=== PATIENT | male | born 1960 | race Caucasian/White ===

== ENCOUNTER 2019-01-15 11:28 | Emergency (ER) | payer BC, SELFPAY ==
[~2019-01-15] VITALS: Ht 190.5 cm; Wt 95.5 kg
[~2019-01-15 11:28] MED LIST: ALBU2.5V12 NEB; ALBU8HFA PO; ALPR1TAB2 PO; ASPI-1071 PO; ATOR20TA66 PO; BUSP15TA14 PO; CARV25TA PO; DEXL60CA3 PO; KEN0.1O TP; TICA90TA PO
[2019-01-15 12:13] LABS: BASOPHILS % (AUTO) 0.4 % (0-1); EOSINOPHILS # (AUTO) 0.1 X10'3 (0-0.9); EOSINOPHILS % (AUTO) 2.2 % (0-6); HEMATOCRIT 43.4 % (42.0-52.0); HEMOGLOBIN 14.6 g/dl (14.0-17.9); LYMPHOCYTES # (AUTO) 1.8 X10'3 (1.1-4.8); LYMPHOCYTES % (AUTO) 26.7 % (21-51); MEAN CORPUSCULAR HEMOGLOBIN 29.1 PG (27.0-31.0); MEAN CORPUSCULAR HGB CONC 33.5 g/dL (33.0-36.5); MEAN CORPUSCULAR VOLUME 86.8 FL (78-98); MEAN PLATELET VOLUME 8.6 FL (7.4-10.4); MONOCYTES # (AUTO) 0.5 X10'3 (0-0.9); NEUTROPHILS # (AUTO) 4.2 X10'3 (1.8-7.7); NEUTROPHILS % (AUTO) 62.7 % (42-75); PLATELET COUNT 195 X10'3 (140-440); RED BLOOD COUNT 5.01 X10'6 (4.70-6.10); RED CELL DISTRIBUTION WIDTH 13.9 % (11.5-14.5); WHITE BLOOD COUNT 6.6 X10'3 (4.5-11.0)
[2019-01-15 12:24] LABS: PARTIAL THROMBOPLASTIN TIME 28 SECONDS (22-32)
[2019-01-15 12:26] LABS: ALANINE AMINOTRANSFERASE 29 U/L (12-78); ALBUMIN 4.4 G/DL (3.4-5.0); ALKALINE PHOSPHATASE 78 IU/L (46-116); ANION GAP 4 (8-16); ASPARTATE AMINO TRANSFERASE 17 U/L (10-37); BILIRUBIN,TOTAL 0.7 MG/DL (0.1-1.0); BLOOD UREA NITROGEN 14 MG/DL (7-18); BUN/CREATININE RATIO 13.7 (5.4-32.0); CALCIUM 9.7 MG/DL (8.5-10.1); CHLORIDE 100 MMOL/L (99-107); CREATININE 1.02 MG/DL (0.60-1.10); GLUCOSE 110 MG/DL (70-104); POTASSIUM 3.9 MMOL/L (3.5-5.1); SODIUM 135 MMOL/L (135-145); TOTAL CARBON DIOXIDE 31.4 MMOL/L (24-32); TOTAL PROTEIN 8.7 G/DL (6.4-8.2); eGFR 75 ML/MIN
[2019-01-15] MEDS ORDERED: aspirin 325mg tablet PO ONE (14:10)
[2019-01-15] MEDS ORDERED: nitroGLYCERIN 0.4mg SUBLingual tab SL PRN (14:20)
[2019-01-15 16:24] VITALS: BP 144/74
== END 2019-01-15 16:26 | disposition home or self-care (01) ==
LOC: ER 11:28
DX: R07.89 Other chest pain (principal); R06.02 Shortness of breath; M54.9 Dorsalgia, unspecified; R11.2 Nausea with vomiting, unspecified; I25.10 Atherosclerotic heart disease of native coronary artery without angina pectoris; I25.2 Old myocardial infarction; G89.29 Other chronic pain; Z98.61 Coronary angioplasty status; Z98.890 Other specified postprocedural states; Z88.0 Allergy status to penicillin; Z91.018 Allergy to other foods; Z88.5 Allergy status to narcotic agent; Z79.82 Long term (current) use of aspirin; Z79.899 Other long term (current) drug therapy; Z87.891 Personal history of nicotine dependence
CPT/HCPCS: 36415; 71045; 80053; 84484; 85025; 85610; 85730; 93005; 99284

== ENCOUNTER 2019-11-01 15:23 | Observation (INO) | payer BC ==
[~2019-11-01] VITALS: Ht 190.5 cm; Wt 93.2 kg
[~2019-11-01 15:23] MED LIST changes: -BUSP15TA14 PO; +BUSP15TA8 PO
[2019-11-01] MEDS ORDERED: nitroGLYCERIN 0.4mg SUBLingual tab SL STA (15:46)
[2019-11-01] MEDS ORDERED: aspirin 81mg tab.chew PO ONE (15:50)
[2019-11-01 15:54] LABS: BASOPHILS % (AUTO) 0.4 % (0-1); EOSINOPHILS # (AUTO) 0.2 X10'3 (0-0.9); EOSINOPHILS % (AUTO) 2.5 % (0-6); HEMATOCRIT 43.3 % (42.0-52.0); HEMOGLOBIN 14.5 g/dl (14.0-17.9); LYMPHOCYTES # (AUTO) 1.9 X10'3 (1.1-4.8); LYMPHOCYTES % (AUTO) 25.2 % (21-51); MEAN CORPUSCULAR HEMOGLOBIN 29.7 PG (27.0-31.0); MEAN CORPUSCULAR HGB CONC 33.5 g/dL (33.0-36.5); MEAN CORPUSCULAR VOLUME 88.6 FL (78-98); MEAN PLATELET VOLUME 9.4 FL (7.4-10.4); MONOCYTES # (AUTO) 0.7 X10'3 (0-0.9); MONOCYTES % (AUTO) 9.1 % (2-12); NEUTROPHILS # (AUTO) 4.9 X10'3 (1.8-7.7); NEUTROPHILS % (AUTO) 62.8 % (42-75); PLATELET COUNT 197 X10'3 (140-440); RED BLOOD COUNT 4.88 X10'6 (4.70-6.10); RED CELL DISTRIBUTION WIDTH 13.2 % (11.5-14.5); WHITE BLOOD COUNT 7.7 X10'3 (4.5-11.0)
--- NOTE | 2019-11-01 16:10 | NUR ---
pt states he had almost instantaneous relief from nitro, can breathe much deeper and cp has abated
[2019-11-01 16:26] LABS: ALANINE AMINOTRANSFERASE 27 U/L (12-78); ALBUMIN 3.9 G/DL (3.4-5.0); ALKALINE PHOSPHATASE 73 IU/L (46-116); ANION GAP 8 (8-16); ASPARTATE AMINO TRANSFERASE 16 U/L (10-37); BILIRUBIN,TOTAL 0.4 MG/DL (0.1-1.0); BLOOD UREA NITROGEN 12 MG/DL (7-18); BUN/CREATININE RATIO 11.9 (5.4-32.0); CALCIUM 9.6 MG/DL (8.5-10.1); CHLORIDE 104 MMOL/L (99-107); CREATININE 1.01 MG/DL (0.60-1.10); GLUCOSE 111 MG/DL (70-104); POTASSIUM 3.9 MMOL/L (3.5-5.1); SODIUM 139 MMOL/L (135-145); TOTAL CARBON DIOXIDE 27.5 MMOL/L (24-32); TOTAL PROTEIN 7.8 G/DL (6.4-8.2); eGFR 76 ML/MIN
[2019-11-01] MEDS ORDERED: normal saline 1000ML IV soln IVB ONE (16:55)
[2019-11-01] MEDS ORDERED: acetaminophen 325mg tablet PO PRN ×2 (17:15)
[2019-11-01] MEDS ORDERED: nitroGLYCERIN 0.4mg SUBLingual tab SL PRN (17:15)
[2019-11-01] MEDS ORDERED: potassium CL 10mEq/100ml bag 100 ML IV PRN ×2 (17:15)
[2019-11-01] MEDS ORDERED: aminophylline 250mg/10ml inj. IV PRN (17:15)
[2019-11-01] MEDS ORDERED: metoprolol tartrate 1mg/ml inj IV PRN (17:15)
[2019-11-01] MEDS ORDERED: mag hydrox/Alum hydrox/simeth 30ml oral suspension PO PRN (17:15)
[2019-11-01] MEDS ORDERED: potassium Cl 20 mEq SR tablet PO PRN ×2 (17:15)
[2019-11-01] MEDS ORDERED: magnesium 2GM in 50ml NS 50 ML IV PRN (17:15)
[2019-11-01] MEDS ORDERED: magnesium 4gm in 100ml NS 100 ML IV PRN (17:15)
[2019-11-01] MEDS ORDERED: magnesium Cl slow-release 64mg tablet PO PRN (17:15)
[2019-11-01] MEDS ORDERED: ondansetron/PF 4mg/2ml inj IV PRN (17:15)
[2019-11-01] MEDS ORDERED: regadenoson 0.4mg/5ml syringe IV ONE (17:15)
[2019-11-01] MEDS ORDERED: magnesium hydroxide 30ml (MOM) UD suspension PO PRN (17:15)
[2019-11-01] MEDS ORDERED: acetaminophen 650mg rectal suppository RC PRN (17:15)
[2019-11-01] MEDS ORDERED: bisacodyl 10mg suppository rectal RC PRN (17:15)
[2019-11-01] MEDS: normal saline 1000ml 1,000 ML IV SCH (17:42)
[2019-11-01] MEDS ORDERED: ATOR40TA71 PO (17:49)
[2019-11-01] MEDS ORDERED: ASPI-611 PO (17:50)
[2019-11-01] MEDS ORDERED: LOSA25TA41 PO (17:50)
[2019-11-01 18:01] LABS: HEMOGLOBIN A1C 5.6 % (4.5-6.2)
[2019-11-01 18:24] LABS: CLARITY,URINE CLEAR (Clear); COLOR,URINE YELLOW (Yellow); GLUCOSE, URINE NEGATIVE (Neg); KETONES,URINE NEGATIVE (Neg); LEUKOCYTE ESTERASE ,URINE NEGATIVE (Neg); NITRITES, URINE NEGATIVE (Neg); OCCULT BLOOD,URINE NEGATIVE (Neg); PROTEIN,URINE NEGATIVE (Neg); UROBILINOGEN,URINE 0.2 E.U/dL (0.2-1.0)
[2019-11-01 18:38] LABS: UA COLLECTION TYPE CLN CATCH MIDSTREAM
[2019-11-01 19:05] VITALS: BP 148/88
--- NOTE | 2019-11-01 19:05 | NUR ---
pt arrived to PCU unit from ER, pt transferred from [facility] to bed independently, pt is A&O x4, pt denies any chest pain at this time, will continue to monitor pt
[2019-11-01] MEDS ORDERED: pneumococcal 23-VAL P-sac vacc 25 mcg/0.5ml vial IMVAC ONE (19:55)
[2019-11-01] MEDS: K and/or MAG REPLACEMENT MC SCH (20:00)
[2019-11-01] MEDS: heparin, porcine 5000 units/ml vial SQ SCH (20:57)
--- NOTE | 2019-11-01 21:12 | NUR ---
PAGER ID: [phone] MESSAGE: Estuardo Casanova 59M admitted with CP pt takes 25mg coreg BID took AM dose needs PM dose and xanax 1mg PRN sleep was wondering if i could get these ordered please? Thank you Mehnaz CONN [id number]
[2019-11-01] MEDS ORDERED: triamcinolone acet 0.1% cream 15gm TP PRN (21:30)
[2019-11-01] MEDS ORDERED: ALPRAZolam 0.5mg tablet PO PRN (21:30)
[2019-11-01 22:00] VITALS: BP 140/76
[2019-11-02] VITALS (10 sets, daily range): BP systolic 118–165; BP diastolic 64–89
[2019-11-02 04:07] LABS: BASOPHILS % (AUTO) 0.5 % (0-1); EOSINOPHILS # (AUTO) 0.2 X10'3 (0-0.9); EOSINOPHILS % (AUTO) 2.5 % (0-6); HEMATOCRIT 39.3 % (42.0-52.0); LYMPHOCYTES # (AUTO) 2.2 X10'3 (1.1-4.8); LYMPHOCYTES % (AUTO) 33.5 % (21-51); MEAN CORPUSCULAR HEMOGLOBIN 29.3 PG (27.0-31.0); MEAN CORPUSCULAR HGB CONC 33.2 g/dL (33.0-36.5); MEAN CORPUSCULAR VOLUME 88.2 FL (78-98); MEAN PLATELET VOLUME 8.5 FL (7.4-10.4); MONOCYTES # (AUTO) 0.6 X10'3 (0-0.9); MONOCYTES % (AUTO) 9.3 % (2-12); NEUTROPHILS # (AUTO) 3.6 X10'3 (1.8-7.7); NEUTROPHILS % (AUTO) 54.2 % (42-75); PLATELET COUNT 152 X10'3 (140-440); RED BLOOD COUNT 4.46 X10'6 (4.70-6.10); RED CELL DISTRIBUTION WIDTH 13.2 % (11.5-14.5); WHITE BLOOD COUNT 6.6 X10'3 (4.5-11.0)
[2019-11-02 04:19] LABS: ALBUMIN 3.3 G/DL (3.4-5.0); ANION GAP 5 (8-16); BILIRUBIN,TOTAL 0.4 MG/DL (0.1-1.0); BLOOD UREA NITROGEN 11 MG/DL (7-18); BUN/CREATININE RATIO 11.6 (5.4-32.0); CALCIUM 8.3 MG/DL (8.5-10.1); CHLORIDE 108 MMOL/L (99-107); CREATININE 0.95 MG/DL (0.60-1.10); GLUCOSE 95 MG/DL (70-104); POTASSIUM 3.8 MMOL/L (3.5-5.1); SODIUM 142 MMOL/L (135-145); TOTAL CARBON DIOXIDE 28.6 MMOL/L (24-32); TOTAL PROTEIN 6.7 G/DL (6.4-8.2); eGFR 82 ML/MIN
[2019-11-02 04:20] LABS: ALANINE AMINOTRANSFERASE 21 U/L (12-78); ALKALINE PHOSPHATASE 59 IU/L (46-116); ASPARTATE AMINO TRANSFERASE 16 U/L (10-37)
[2019-11-02 04:22] LABS: CHOL/HDL RATIO 3.9 (0.00-4.99); CHOLESTEROL 146 MG/DL (0-200); HDL CHOLESTEROL 37 MG/DL (35-60); LDL CHOLESTEROL 80 MG/DL (50-100); MAGNESIUM 1.8 MG/DL (1.5-2.4); PHOSPHORUS 4.1 MG/DL (2.3-4.5); TRIGLYCERIDES 129 MG/DL (20-135)
--- NOTE | 2019-11-02 06:21 | NUR ---
Problems reprioritized. Patient report given, questions answered & plan of care reviewed with Astrid RN.
--- NOTE | 2019-11-02 06:43 | NUR ---
Patient in room PCU 3017. I have received report from SENIA Darby and had the opportunity to ask questions and assume patient care.
[2019-11-02] MEDS: normal saline 1000ml 1,000 ML IV SCH ×2 (06:57→08:52)
[2019-11-02] MEDS ORDERED: pantoprazole 40mg Tablet.DR PO SCH (08:00)
[2019-11-02] MEDS ORDERED: aspirin 81mg tablet.DR PO SCH (08:00)
[2019-11-02] MEDS ORDERED: losartan 25mg tablet PO SCH (08:00)
[2019-11-02] MEDS ORDERED: carvedilol 6.25mg tablet PO SCH (08:00)
[2019-11-02] MEDS: K and/or MAG REPLACEMENT MC SCH (08:00)
[2019-11-02] MEDS ORDERED: atorvastatin 20mg tablet PO SCH (08:00)
[2019-11-02] MEDS: heparin, porcine 5000 units/ml vial SQ SCH (08:18)
--- NOTE | 2019-11-02 11:13 | NUR ---
Sent to Dr Huizar PAGER ID: [phone] MESSAGE: RE: Estuardo Casanova [id number]. Pt is back from [facility], I have not seen any results yet. Pt is saying is wants to leave. -Astrid [id number]
--- NOTE | 2019-11-02 12:51 | NUR ---
sent to Dr Huizar Addendum: 11/02/19 at 1251 by Astrid Morrison RN PAGER ID: [phone] MESSAGE: RE: Estuardo Casanova [id number]. Pt is getting anxious, states he is going to leave. -Astrid [phone]
[2019-11-02] MEDS ORDERED: NITR0.4T51 SL (14:25)
--- NOTE | 2019-11-02 15:15 | NUR ---
pt discharged. iv d/c'd, tele removed, all belongings sent with pt, accompanied downstairs by hospital staff, left in private vehicle with , Rx sent to pt preferred pharmacy.
== END 2019-11-02 15:14 | disposition home or self-care (01) ==
LOC: ER 15:24 → ED HOLD 17:14 → PCU 3S 19:05
PROVIDERS: ADMIT Family Medicine; ATTEND Family Medicine
DX: R07.89 Other chest pain (principal); I25.10 Atherosclerotic heart disease of native coronary artery without angina pectoris; I25.2 Old myocardial infarction; I10 Essential (primary) hypertension; E78.5 Hyperlipidemia, unspecified; E78.00 Pure hypercholesterolemia, unspecified; K21.9 Gastro-esophageal reflux disease without esophagitis; J44.9 Chronic obstructive pulmonary disease, unspecified; Z90.49 Acquired absence of other specified parts of digestive tract; Z90.89 Acquired absence of other organs; Z87.891 Personal history of nicotine dependence; Z95.5 Presence of coronary angioplasty implant and graft; Z79.82 Long term (current) use of aspirin; Z79.899 Other long term (current) drug therapy; Z88.0 Allergy status to penicillin; Z88.5 Allergy status to narcotic agent; Z23 Encounter for immunization
CPT/HCPCS: 36415; 71045; 78452; 80053; 80061; 81003; 83036; 83735; 84100; 84484; 85025; 87081; 90471; 90732; 93005; 93017; 93306; 96372; 99285; A9500; G0378; J1644; J2785; J7030

== ENCOUNTER 2021-12-15 12:31 | Emergency (ER) | payer BC ==
[~2021-12-15] VITALS: Ht 190.5 cm; Wt 97.7 kg
[~2021-12-15 12:31] MED LIST changes: -ALBU2.5V12 NEB; -ASPI-1071 PO; +ASPI-611 PO; -ATOR20TA66 PO; +ATOR40TA71 PO; -BUSP15TA8 PO; +LOSA25TA41 PO; +NITR0.4T51 SL; -TICA90TA PO
[2021-12-15 12:54] VITALS: BP 139/86
[2021-12-15] MEDS ORDERED: BEBTELOVIMAB 175 MG/2 ML VIAL IV ONE ×2 (16:05→16:45)
== END 2021-12-15 18:52 | disposition home or self-care (01) ==
LOC: ER 12:31
DX: U07.1 COVID-19 (principal); J02.9 Acute pharyngitis, unspecified; R51.9 Headache, unspecified; R00.2 Palpitations; R07.89 Other chest pain; R50.9 Fever, unspecified; E86.0 Dehydration; I25.10 Atherosclerotic heart disease of native coronary artery without angina pectoris; E78.00 Pure hypercholesterolemia, unspecified; I10 Essential (primary) hypertension; I25.2 Old myocardial infarction; K21.9 Gastro-esophageal reflux disease without esophagitis; G89.29 Other chronic pain; F17.200 Nicotine dependence, unspecified, uncomplicated; Z98.890 Other specified postprocedural states; Z88.0 Allergy status to penicillin; Z88.5 Allergy status to narcotic agent; Z88.8 Allergy status to other drugs, medicaments and biological substances; Z79.82 Long term (current) use of aspirin; Z79.899 Other long term (current) drug therapy
CPT/HCPCS: 99283; M0222; Q0222

== ENCOUNTER 2023-08-29 05:09 | Inpatient (IN) | payer BC ==
[~2023-08-29] VITALS: Ht 190.5 cm; Wt 97.7 kg
[2023-08-29] MEDS ORDERED: morphine 2 MG/ML inj. syringe IV ONE (06:10)
[2023-08-29] MEDS ORDERED: ondansetron/PF 4mg/2ml inj IV ONE (06:10)
[2023-08-29] MEDS ORDERED: normal saline 1000ML IV soln IVB ONE (06:15)
[2023-08-29 07:08] LABS: HEMOGLOBIN 12.5 g/dl (14.0-17.9); MEAN PLATELET VOLUME 8.6 FL (7.4-10.4)
[2023-08-29 07:13] LABS: BASOPHILS % (AUTO) 0.2 % (0-1); EOSINOPHILS # (AUTO) 0.1 X10'3 (0-0.9); EOSINOPHILS % (AUTO) 0.7 % (0-6); HEMATOCRIT 36.6 % (42.0-52.0); LYMPHOCYTES # (AUTO) 1.4 X10'3 (1.1-4.8); LYMPHOCYTES % (AUTO) 12.6 % (21-51); MEAN CORPUSCULAR HEMOGLOBIN 29.3 PG (27.0-31.0); MEAN CORPUSCULAR VOLUME 86.2 FL (78-98); MONOCYTES # (AUTO) 1.3 X10'3 (0-0.9); MONOCYTES % (AUTO) 11.3 % (2-12); NEUTROPHILS # (AUTO) 8.6 X10'3 (1.8-7.7); NEUTROPHILS % (AUTO) 75.2 % (42-75); PLATELET COUNT 191 X10'3 (140-440); RED BLOOD COUNT 4.25 X10'6 (4.70-6.10); RED CELL DISTRIBUTION WIDTH 12.7 % (11.5-14.5); WHITE BLOOD COUNT 11.4 X10'3 (4.5-11.0)
[2023-08-29 07:14] LABS: ASPARTATE AMINO TRANSFERASE 9 U/L (10-37); BLOOD UREA NITROGEN 10 MG/DL (7-18); BUN/CREATININE RATIO 10.4 (10.0-20.0); CHLORIDE 97 MMOL/L (99-107); CREATININE 0.96 MG/DL (0.60-1.10); GLUCOSE 115 MG/DL (70-104); POTASSIUM 4.1 MMOL/L (3.5-5.1); SODIUM 131 MMOL/L (135-145); eCRCL 97 ML/MIN; eGFR 80 ML/MIN
[2023-08-29 07:34] LABS: ALANINE AMINOTRANSFERASE 20 U/L (12-78); ALBUMIN 3.4 G/DL (3.4-5.0); ALBUMIN/GLOBULIN RATIO 0.9 (1.1-1.5); ALKALINE PHOSPHATASE 74 IU/L (46-116); ANION GAP 6 (8-16); BILIRUBIN,TOTAL 0.9 MG/DL (0.1-1.0); CALCIUM 8.9 MG/DL (8.5-10.1); LIPASE 39 U/L (16-77); TOTAL CARBON DIOXIDE 27.9 MMOL/L (24-32); TOTAL PROTEIN 7.2 G/DL (6.4-8.2)
[2023-08-29] MEDS ORDERED: cefoxitin sod inj 2,000 MG in normal saline 100ml IV soln 100 ML IV STA (07:51)
[2023-08-29] MEDS ORDERED: diphenhydrAMINE 25mg capsule PO PRN (08:45)
[2023-08-29] MEDS ORDERED: acetaminophen 325mg tablet PO PRN ×2 (08:45)
[2023-08-29] MEDS ORDERED: mag hydrox/Alum hydrox/simeth 30ml oral suspension PO PRN (08:45)
[2023-08-29] MEDS ORDERED: bisacodyl 10mg suppository rectal RC PRN (08:45)
[2023-08-29] MEDS ORDERED: ondansetron 4mg rapidly disintigrating tab PO PRN (08:45)
[2023-08-29] MEDS ORDERED: ondansetron/PF 4mg/2ml inj IV PRN (08:45)
[2023-08-29] MEDS ORDERED: HYDROcodone/acetaminophen 5mg/325mg tablet PO PRN (08:45)
[2023-08-29] MEDS ORDERED: morphine 2 MG/ML inj. syringe IV PRN (08:45)
[2023-08-29] MEDS ORDERED: diphenhydrAMINE 50 mg/ml inj IV PRN (08:45)
[2023-08-29] MEDS ORDERED: magnesium hydroxide 30ml (MOM) UD suspension PO PRN (08:45)
[2023-08-29 09:20] LABS: BILIRUBIN,URINE NEGATIVE (Neg); CLARITY,URINE CLEAR (Clear); COLOR,URINE YELLOW (Yellow); GLUCOSE, URINE NEGATIVE (Neg); KETONES,URINE NEGATIVE (Neg); LEUKOCYTE ESTERASE ,URINE NEGATIVE (Neg); NITRITES, URINE NEGATIVE (Neg); OCCULT BLOOD,URINE NEGATIVE (Neg); PROTEIN,URINE NEGATIVE (Neg); UROBILINOGEN,URINE 0.2 E.U/dL (0.2-1.0)
[2023-08-29] MEDS ORDERED: OLME40TA18 PO (09:31)
[2023-08-29] MEDS: normal saline 1000ml 1,000 ML IV SCH ×2 (09:35→18:05)
[2023-08-29 09:39] LABS: UA COLLECTION TYPE URINAL
[2023-08-29] MEDS ORDERED: ALPRAZolam 0.5mg tablet PO PRN (09:50)
[2023-08-29] MEDS ORDERED: triamcinolone acet 0.1% cream 15gm TP PRN (09:50)
[2023-08-29 09:51] LABS: APTT 29 SECONDS (22-32); INR 1.1 INR; PROTHROMBIN TIME 11.8 SECONDS (9.0-12.0)
[2023-08-29 10:43] LABS: PHOSPHORUS 3.4 MG/DL (2.3-4.5)
[2023-08-29] MEDS: cefoxitin sod inj 2,000 MG in normal saline 100ml IV soln 100 ML IV SCH (16:49)
[2023-08-29] MEDS: docusate sod 100mg capsule PO SCH (20:00)
[2023-08-29] MEDS: carVEDilol 12.5mg tablet PO SCH (20:36)
[2023-08-29] MEDS: heparin, porcine 5000 units/ml vial SQ SCH (20:37)
[2023-08-29] MEDS: metroNIDAZOLE-Flagyl 500mg/NS 100 ML IV SCH (20:46)
[2023-08-29] MEDS ORDERED: temazepam 15mg capsule PO PRN (21:00)
[2023-08-30] MEDS: cefoxitin sod inj 2,000 MG in normal saline 100ml IV soln 100 ML IV SCH ×2 (01:13→08:47)
[2023-08-30] MEDS: normal saline 1000ml 1,000 ML IV SCH ×2 (05:23→14:45)
[2023-08-30] MEDS ORDERED: pantoprazole 40mg Tablet.DR PO SCH (07:30)
[2023-08-30] MEDS ORDERED: aspirin 81mg, enteric-coated 1 TAB TABLET.DR PO SCH (08:00)
[2023-08-30] MEDS ORDERED: atorvastatin 20mg tablet PO SCH (08:00)
[2023-08-30] MEDS: carVEDilol 12.5mg tablet PO SCH (08:44)
[2023-08-30] MEDS: docusate sod 100mg capsule PO SCH (08:46)
[2023-08-30] MEDS: heparin, porcine 5000 units/ml vial SQ SCH (08:46)
[2023-08-30 09:10] LABS: BASOPHILS % (AUTO) 0.4 % (0-1); EOSINOPHILS # (AUTO) 0.1 X10'3 (0-0.9); EOSINOPHILS % (AUTO) 1.3 % (0-6); HEMATOCRIT 31.9 % (42.0-52.0); HEMOGLOBIN 10.8 g/dl (14.0-17.9); LYMPHOCYTES # (AUTO) 1.2 X10'3 (1.1-4.8); LYMPHOCYTES % (AUTO) 19.7 % (21-51); MEAN CORPUSCULAR HEMOGLOBIN 29.6 PG (27.0-31.0); MEAN CORPUSCULAR VOLUME 87.2 FL (78-98); MEAN PLATELET VOLUME 8.2 FL (7.4-10.4); MONOCYTES # (AUTO) 0.6 X10'3 (0-0.9); MONOCYTES % (AUTO) 10.4 % (2-12); NEUTROPHILS % (AUTO) 68.2 % (42-75); PLATELET COUNT 154 X10'3 (140-440); RED BLOOD COUNT 3.65 X10'6 (4.70-6.10); RED CELL DISTRIBUTION WIDTH 12.8 % (11.5-14.5); WHITE BLOOD COUNT 5.9 X10'3 (4.5-11.0)
[2023-08-30 09:21] LABS: ALANINE AMINOTRANSFERASE 16 U/L (12-78); ALBUMIN 2.8 G/DL (3.4-5.0); ALBUMIN/GLOBULIN RATIO 0.8 (1.1-1.5); ALKALINE PHOSPHATASE 56 IU/L (46-116); ANION GAP 8 (8-16); ASPARTATE AMINO TRANSFERASE 14 U/L (10-37); BILIRUBIN,TOTAL 0.5 MG/DL (0.1-1.0); BLOOD UREA NITROGEN 7 MG/DL (7-18); BUN/CREATININE RATIO 6.5 (10.0-20.0); CALCIUM 8.1 MG/DL (8.5-10.1); CHLORIDE 102 MMOL/L (99-107); CHOL/HDL RATIO 3.1 (0.00-4.99); CHOLESTEROL 135 MG/DL (0-200); CREATININE 1.07 MG/DL (0.60-1.10); GLUCOSE 97 MG/DL (70-104); HDL CHOLESTEROL 44 MG/DL (35-60); LDL CHOLESTEROL 69 MG/DL (50-100); SODIUM 136 MMOL/L (135-145); TOTAL CARBON DIOXIDE 26.3 MMOL/L (24-32); TOTAL PROTEIN 6.2 G/DL (6.4-8.2); TRIGLYCERIDES 107 MG/DL (20-135); eCRCL 87 ML/MIN; eGFR 70 ML/MIN
[2023-08-30] MEDS: metroNIDAZOLE-Flagyl 500mg/NS 100 ML IV SCH (09:25)
[2023-08-30 12:00] VITALS: BP 129/81; PULSE 75; RESP 16; TEMP 97.8; O2SAT 97
[2023-08-30 12:30] VITALS: RESP 16; O2SAT 97
[2023-08-30] MEDS ORDERED: CIPR-202 PO (15:04)
[2023-08-30] MEDS ORDERED: METR-159 PO (15:04)
[2023-08-30] MEDS ORDERED: ciprofloxacin lact 400MG/200ML 200 ML IV SCH (20:00)
== END 2023-08-30 17:20 | disposition home or self-care (01) | DRG 392 ==
LOC: ER 05:10 → ED HOLD 08:45 → ORTHO 4S 08-30 12:12
PROVIDERS: ADMIT Family Medicine; ATTEND Family Medicine
DX: K57.32 Diverticulitis of large intestine without perforation or abscess without bleeding (principal); E87.1 Hypo-osmolality and hyponatremia; I25.10 Atherosclerotic heart disease of native coronary artery without angina pectoris; I50.9 Heart failure, unspecified; J44.9 Chronic obstructive pulmonary disease, unspecified; I11.0 Hypertensive heart disease with heart failure; K59.09 Other constipation; E86.1 Hypovolemia; K21.9 Gastro-esophageal reflux disease without esophagitis; E78.00 Pure hypercholesterolemia, unspecified; Z87.891 Personal history of nicotine dependence; I25.2 Old myocardial infarction; Z95.5 Presence of coronary angioplasty implant and graft; Z88.0 Allergy status to penicillin; Z88.5 Allergy status to narcotic agent; Z91.018 Allergy to other foods; Z79.899 Other long term (current) drug therapy; Z79.82 Long term (current) use of aspirin
CPT/HCPCS: 36415; 74176; 80053; 80061; 81003; 83036; 83605; 83690; 83735; 83880; 84100; 84145; 85025; 85610; 85730; 87040; 87081; 99285; G0378; J0694; J1644; J2270; J2405; J3490; J7030